=== PATIENT | male | born 1940 | race African-American/Black ===

== ENCOUNTER 2017-01-21 09:06 | Inpatient (IN) ==
[2017-01-21] MEDS ORDERED: ALBUTEROL/IPRATROPIUM 3 ML NEB RESP TX STA (09:51)
[2017-01-21 09:57] LABS: Basophils % 0.3 % (0.0-0.8); Eosinophils # 0.1 10*3/uL (0.0-0.87); Eosinophils % 1.1 % (0.00-10.9); Hematocrit 37.8 VOL% (42.0-52.0); Hemoglobin 11.9 GM/DL (14.0-18.0); Immature Granulocytes % 0.9 %; Immature Granulocytes Absolute 0.09 #; Lymphocytes # 1.2 10*3/uL (1.4-4.0); Lymphocytes % 12.7 % (21.2-54.2); Mean Corpuscular HGB Conc 31.5 GM/DL (32-36); Mean Corpuscular Hemoglobin 29 PG (27-34); Mean Corpuscular Volume 93.1 FL (87-102); Mean Platelet Volume 10.8 FL (9.6-12.0); Monocytes # 1.6 10*3/uL (0.11-0.8); Monocytes % 16.2 % (1.7-12.7); Neutrophils # 6.6 10*3/uL (1.4-7.4); Neutrophils % 68.8 % (38.7-73.9); Platelet Count 295 T/CUMM (130-400); Red Blood Count 4.06 MC/CUMM (3.8-5.5); Red Cell Distribution Width 14.9 % (9.3-17.3); White Blood Count 9.6 T/CUMM (4-12)
--- NOTE | 2017-01-21 10:06 | XRay Report ---
XR chest 1V portable Indication: Shortness of breath Comparison: 02 Apr 2015 Findings: The heart and mediastinum are normal in size and configuration. The pulmonary vascularity is normal in caliber. Lung volumes are increased with prominent bronchial markings. There is increased left lung density when compared previous exam. Lung no other pulmonary infiltrates, effusions, pneumothorax or other abnormality is demonstrated. Impression: Increased left lung density, could indicate pneumonia or mass. PROCEDURE INTERPRETED AT [facility] DEPARTMENT OF RADIOLOGY Final Report Signed by: Dr. Luis Rodríguez
[2017-01-21 10:21] LABS: Hypochromasia 1+; Platelet Estimate Adequate
[2017-01-21 10:22] LABS: Albumin 2.7 G/DL (3.4-5.0); Calcium 8.2 MG/DL (8.5-10.1); Magnesium 1.7 MG/DL (1.8-2.4); Osmolality,Calculated 277.3 MOS/KG (273-304); Potassium 3.1 MMOL/L (3.5-5.1); Total Protein 6.6 G/DL (6.4-8.3)
[2017-01-21] MEDS ORDERED: DOCUSATE SODIUM 100 MG CAPSULE PO PRN (11:21)
[2017-01-21] MEDS ORDERED: LACTULOSE 20 GM/30 ML UDCUP PO PRN (11:21)
[2017-01-21] MEDS ORDERED: ACETAMINOPHEN 325 MG TABLET PO PRN (11:21)
[2017-01-21] MEDS ORDERED: MORPHINE 2 MG/1 ML SYRINGE IV PRN (11:21)
[2017-01-21] MEDS ORDERED: ZALEPLON 5 MG CAPSULE PO PRN (11:21)
--- NOTE | 2017-01-21 11:32 | Emergency Department Note ---
Silas Giordano Meredith, am scribing for, and in the presence of, Mario Higuera MD 09:27. Davida Giordano Phillip K, MD, personally performed the services described in this documentation, ascribed by Carito Rosen in my presence, and it is both accurate and complete . Arrival - Arrival Chief Complaint: Shortness of Breath Stated Complaint: shortness of breath ED Nursing Triage Note: Brought in per EMS from home with c/o shortness of breath onset 4 days ago. +dyspnea on exertion. Denies pain. Denies cough. Reports is on home oxygen 2liters at all times. Mode of Arrival: Stretcher Limitations: No Limitations Source: Patient, Significant other (), Old Records Reviewed, RN Notes Reviewed Time Seen by Provider: 01/21/17 09:22 - History of Present Illness HPI Narrative: Pt is a 76 y/o black male brought to the ED by EMS with c/o shortness of breath which onset 1 week ago. He confirms dyspnea on exertion, sharp chest pain, subjective fever, diarrhea, and decreased appetite but denies any cough, nausea , or vomiting. states pt was diagnosed with lung cancer 3 weeks ago. Pt is on home 2 liters of home O2. He has a history of HTN, HLD, bronchitis, COPD, asbestosis, and GERD. Pt is a former smoker. Onset (ago): week(s) Quality: sharp Allergies/Adverse Reactions: Allergies Allergy/AdvReac Type Severity Reaction Status Date / Time Penicillins Allergy ANAPHYLAXIS Verified 01/21/17 09:17 Home Medications: Home Medications Medication Instructions Recorded Confirmed Type Diltiazem HCl [Cartia XT] 240 mg PO DAILY 03/28/15 12/25/16 History Furosemide 40 mg PO DAILY 03/28/15 12/25/16 History Montelukast Sodium 10 mg PO DAILY 03/28/15 12/25/16 History hydrALAZINE TAB [Apresoline Tab] 10 mg PO BID 03/28/15 12/25/16 History Tiotropium Inhalation [Spiriva] 18 mcg INH DAILY #1 box 04/05/15 12/25/16 Rx Albuterol Sulfate [Ventolin HFA] 2 puff INH Q4H PRN 12/08/16 12/25/16 History Megestrol Acetate [Megace] 400 ml PO DAILY 12/08/16 12/25/16 History Meloxicam [Mobic] 15 mg PO DAILY PRN 12/08/16 12/25/16 History Omeprazole [Prilosec] 20 mg PO BID 12/08/16 12/25/16 History Simvastatin [Zocor] 80 mg PO BEDTIME 12/08/16 12/25/16 History Tamsulosin [Flomax] 0.4 mg PO BID 12/08/16 12/25/16 History Fluticasone 50 Mcg Nasal [place] 1 spray BOTH NARES DAILY PRN 12/19/16 12/25/16 History [Flonase Nasal [place]] HYDROcodone/ACETAMIN 10-325 [[place] 1 tablet PO TID PRN 12/25/16 12/25/16 History 10-325] Review of System - Review of System 12 point system: reviewed and no additional remarkable complaints except as stated - Review of System Constitutional: Present: as per HPI, fever (subjective) Respiratory: Present: as per HPI, other (SOB) Cardiovascular: Present: as per HPI, chest pain, dyspnea on exertion Gastrointestinal: Present: as per HPI, diarrhea, other (decreased appetite). Absent: nausea, vomiting Medical,Surgical,& Family Hx - Medical History Cardio: History of: Hypertension HEENT: History of: HEENT Problems (chronic sinusitis) Endocrine: History of: Dyslipidemia Respiratory: History of: Bronchitis, COPD (emphysema), Lung Cancer, Respiratory Problems (Asbestosis Hx) Gastrointestinal: History of: GERD - Surgical History Cardiac Surgeries: Sugical HX of: Carotid Endarterectomy (left side) HEENT Surgeries: Surgical HX of: Carotid Endarterectomy (left side) Abdominal Surgeries: Patient denies: Abdominal Surgery - Family History Family History: Reports;: Family Diabetes (brother) Denies;: Family Anesthesia Reaction, Family Cancer, Family Heart Disease, Family Hypertension, Family Stroke - Social History Smoking Status: Former smoker Exam Vital Signs: Vital Signs Temperature 97.7 F 01/21/17 09:17 Pulse Rate 68 01/21/17 10:15 Respiratory Rate 23 01/21/17 10:50 Blood Pressure 146/78 01/21/17 10:15 O2 Sat by Pulse Oximetry 100 01/21/17 10:15 - General General appearance: alert, in no apparent distress - Head Head exam: Present: atraumatic, normocephalic - Eye Eye exam: Present: normal appearance, PERRL, EOMI - ENT ENT exam: Present: mucous membranes moist, normal external ear exam - Neck Neck exam: Present: full ROM, trachea midline. Absent: tenderness, meningismus , lymphadenopathy, thyromegaly - Chest Chest inspection: Present: symmetric chest wall rise. Absent: tenderness, rash - Respiratory Respiratory exam: Present: rales (left base), other (decreased breath sounds in the right posterior lung) - Cardiovascular Cardiovascular exam: Present: regular rate, normal rhythm, normal heart sounds. Absent: murmur, rubs, gallop - Abdominal Exam Abdominal exam: Present: soft, normal bowel sounds. Absent: distention, tenderness - Extremities Exam Extremities exam: Present: full ROM, normal capillary refill. Absent: tenderness, pedal edema, calf tenderness - Back Exam Back exam: Present: full ROM. Absent: tenderness - Neurological Exam Neurological exam: Present: alert, oriented X3, CN II-XII intact. Absent: motor sensory deficit - Psychiatric Psychiatric exam: Present: normal affect, normal mood - Skin Skin exam: Present: warm, dry, intact, normal color Results - Labs CBC & BMP: 01/21/17 09:28 01/21/17 09:28 Lab Results: I have reviewed the patients labs Labs: Laboratory Tests 01/21/17 09:28 D-Dimer, Quantitative 2.6 Laboratory Tests 01/21/17 01/21/17 01/21/17 09:28 09:28 09:28 WBC 9.6 RBC 4.06 Hgb 11.9 L Hct 37.8 L MCHC 31.5 L Plt Count 295 Lymph % (Auto) 12.7 L Door % (Auto) 16.2 H Lymph # (Auto) 1.2 L Door # (Auto) 1.6 H Sodium 141 Potassium 3.1 L Chloride 100 Carbon Dioxide 27 Anion Gap 17.1 H BUN 8 Creatinine 1.10 Calcium 8.2 L Magnesium 1.7 L Total Bilirubin 2.00 H AST 235 H ALT 285 H Alkaline Phosphatase 370 H B-Natriuretic Peptide 39 Albumin 2.7 L Globulin 3.9 H Albumin/Globulin Ratio 0.6 L - Diagnostic Findings Procedure: Chest x-ray: report reviewed by me (Increased left lung denisty could indicate pneumonia or mass. ) Disposition Clinical Impression: Lung cancer metastatic to bone, Dyspnea, Acute exacerbation of chronic obstructive airways disease Clinical Impression: (Ruled Out): Metastatic carcinoma involving left lung with unknown primary site Case discussed with: patient, patient's family Disposition: Still a Patient Condition: Guarded Additional Instructions: Admit to the hospitalist and oncology consult.
[2017-01-21] MEDS ORDERED: ONDANSETRON 4 MG/2 ML VIAL ONE (11:51)
[2017-01-21] MEDS: ONDANSETRON 4 MG/2 ML VIAL IV PRN (11:57)
--- NOTE | 2017-01-21 12:27 | Hospitalist History & Physical ---
Assessment and Plan - Time spent with patient Time spent with patient: Greater than 30 minutes (due to assessment, plan and doc) (1) Lung cancer metastatic to bone Status: Acute Assessment and plan: increased SOB Oncology Consultation: Dr. White Recent L/S spine bx on 12/25 pathology c/w mets Current Visit: Yes (2) HTN (hypertension) Status: Acute Assessment and plan: continue home medications Current Visit: Yes (3) Hyperlipidemia Status: Acute Assessment and plan: continue home meds Current Visit: Yes (4) COPD (chronic obstructive pulmonary disease) Status: Acute Assessment and plan: continue home meds Current Visit: Yes (5) Diarrhea Status: Acute Assessment and plan: will cx stools to ensure no infectious cause Current Visit: Yes History of Present Illness Chief complaint: increased sob History of present illness: Mr. Soria is a 76 year old male who presented to the ED today after having a one long week history of increased shortness of breath. He does have a recent diagnosis of lung cancer and from our records, appears that he had a lumbar/sacral lesion that was biopsied by Dr. Chavarria on 12/25/16 with pathology returning "metastatic poorly differentiated carcinoma". CXR today shows left lung mass that appears to have increased in size from previous studies. He has been to [facility] for a second opinion and has recently gone to [facility] for another opinion. Family at bedside states that [facility] told them there "was nothing to do". He is short of breath at baseline, but with severe dyspnea on exertion according to Mr. Soria and family. Family reports fever at home, but none has been documented here. WBC is normal. He is on home o2 around the clock consistent with chronic respiratory failure. He does not have an oncologist here, but states that he 'wants to get one here'. I have consulted Dr. White who is title one reading teacher for oncology today to see Mr. Soria. He does complain of some midsternal chest pain, no radiation. Does not sound cardiac in nature, but will obtain a troponin to ensure no elevation. He has a hx of gout and is complaining of severe left heel pain, so I will get a uric acid level as well. He is on colchicine 0.6 mg PO BID. He has a PMH significant for COPD/emphysema, HTN, hyperlipidemia, gout, and GERD and likely BPH as he is on Flomax. He is a former smoker, does not drink or use illicits. He mentions that he has no appetite whatsoever and is beginning to have significant nausea. PRN medications have been ordered for pain, nausea. No melena, or hematuria. Is having some diarrhea at this time. Will culture stools. Mr. Soria will be admitted for further work up and Oncology evaluation. He lives at home with his and she helps with his needs along with his daughters. Further plan and addendum to follow by Dr. Olga Olivia. Home Medications Medication Instructions Recorded Confirmed Type Diltiazem HCl [Cartia XT] 240 mg PO QAM 03/28/15 01/21/17 History Furosemide 40 mg PO DAILY 03/28/15 01/21/17 History Montelukast Sodium 10 mg PO DAILY 03/28/15 01/21/17 History Tiotropium Inhalation [Spiriva] 18 mcg INH DAILY #1 box 04/05/15 01/21/17 Rx Albuterol Sulfate [Ventolin HFA] 2 puff INH Q4H PRN 12/08/16 01/21/17 History Megestrol Acetate [Megace] 10 ml PO DAILY 12/08/16 01/21/17 History Omeprazole [Prilosec] 20 mg PO BID 12/08/16 01/21/17 History Simvastatin [Zocor] 80 mg PO BEDTIME 12/08/16 01/21/17 History Tamsulosin [Flomax] 0.4 mg PO BID 12/08/16 01/21/17 History Aspirin EC Tab 81 mg PO DAILY 01/21/17 01/21/17 History Colchicine 0.6 mg PO BID 01/21/17 01/21/17 History Ondansetron HCl 4 mg PO Q6H PRN 01/21/17 01/21/17 History Oxycodone HCl/Acetaminophen 1 each PO Q4H PRN 01/21/17 01/21/17 History [Percocet 10-325 mg Tablet] fentaNYL [Fentanyl 25 mcg/hr Patch] 1 patch TRANSDERM Q3DAY 01/21/17 01/21/17 History Allergies Allergy/AdvReac Type Severity Reaction Status Date / Time Penicillins Allergy ANAPHYLAXIS Verified 01/21/17 09:17 Medical,Surgical,& Family Hx - Medical History Cardio: History of: Hypertension HEENT: History of: HEENT Problems (chronic sinusitis) Endocrine: History of: Dyslipidemia Rheumatology: History of;: Gout Respiratory: History of: Bronchitis, COPD (emphysema), Lung Cancer, Respiratory Problems (Asbestosis Hx) Gastrointestinal: History of: GERD - Surgical History Cardiac Surgeries: Sugical HX of: Carotid Endarterectomy (left side) HEENT Surgeries: Surgical HX of: Carotid Endarterectomy (left side) Abdominal Surgeries: Patient denies: Abdominal Surgery - Family History Family History: Reports;: Family Diabetes (brother) Denies;: Family Anesthesia Reaction, Family Cancer, Family Heart Disease, Family Hypertension, Family Stroke - Social History Smoking Status: Former smoker Frequency of Alcohol Use: None Type of Drug Use: None Marital Status: Lives With:: Spouse Functional capacity: independent ambulation - Constitutional Constitutional: Present: fever(s) (none here.). Absent: chills, fatigue, weakness - EENT Eyes: Absent: blurry vision, diplopia Ears: Absent: decreased hearing, tinnitus Nose, mouth and throat: Absent: dysphagia, headache(s) - Cardiovascular Cardiovascular: Present: chest pain at rest (nonradiating. ), dyspnea, dyspnea on exertion. Absent: orthopnea, palpitations - Respiratory Respiratory: Present: cough, dyspnea, dyspnea on exertion. Absent: hemoptysis - Gastrointestinal Gastrointestinal: Present: diarrhea, nausea. Absent: abdominal pain, melena, vomiting - Genitourinary Genitourinary: Absent: difficulty urinating, hematuria - Musculoskeletal Musculoskeletal: Absent: arthralgias, joint swelling - Neurological Neurological: Absent: confusion, dizziness - Psychiatric Psychiatric: Absent: anxiety, confusion, depression - Endocrine Endocrine: Absent: cold intolerance, heat intolerance - Hematologic/Lymphatic Hematologic/Lymphatic: Absent: easy bleeding, easy bruising Exam - Constitutional Vitals: Period Temp Pulse Resp BP Sys/Solis Pulse Ox Last 24 Hr 97.7 F-97.7 F 68-99 17-23 108-146/75-78 96-100 General appearance: normal weight, no acute distress - Head Head exam: Present: normal inspection, normocephalic - Eye Eye exam: Present: EOMI. Absent: scleral icterus Pupils: Present: RAOUL, normal accommodation - ENT ENT exam: Present: normal exam, normal oropharynx - Neck Neck exam: Present: normal inspection. Absent: lymphadenopathy - Respiratory Respiratory exam: Present: clear to auscultation bilaterally. Absent: accessory muscle use - Cardiovascular Cardiovascular exam: Present: regular rate and rhythm. Absent: carotid bruit - GI/Abdominal GI/Abdominal exam: Present: normal bowel sounds, soft. Absent: tenderness - Extremities Exam Extremities exam: Present: normal inspection. Absent: edema - Back Exam Back exam: Present: normal inspection. Absent: muscle spasm - Neurological Exam Neurological exam: Present: alert, oriented X3 - Psychiatric Psychiatric exam: Present: normal affect, normal mood - Skin Skin exam: Present: normal color, warm, dry, intact Results - Labs CBC & BMP: 01/21/17 09:28 01/21/17 09:28 Lab Results: I have reviewed the past 24 hour labs - Diagnostic Findings Procedure: Chest x-ray: report reviewed by me (infiltrate vs mass. )
[2017-01-21] MEDS ORDERED: ONDANSETRON 4 MG TABLET PO PRN (13:16)
[2017-01-21] MEDS ORDERED: ALBUTEROL 2.5 MG/3 ML NEB RESP TX PRN (13:30)
[2017-01-21] MEDS: IPRATROPIUM 500 MCG/2.5 ML NEB RESP TX SCH ×2 (14:45→19:48)
--- NOTE | 2017-01-21 15:29 | EKG Report ---
Stationary ECG Study [facility] ER Test Date: 01/21/2017 9:13:59 AM Pat Name: Abbey CARY Department: Room: 241 Gender: M Showcase Trimmer: FABIOLA : 1940 Requested by: Mario Barker Order Number: [id number] Reading MD: ANNETTE DUCKWORTH Intervals [place] Rate: 89 P: 69 MN: 166 QRS: -73 QRSD: 74 T: 79 QT: 363 QTc: 410 Interpretive Statements SINUS RHYTHM POSSIBLE LEFT ATRIAL ENLARGEMENT MARKED LEFT AXIS DEVIATION NONSPECIFIC T-WAVE ABNORMALITY Electronically Signed On 01-22-17 22:45:18 SUPERVISOR PROCESS TESTING by ANNETTE DUCKWORTH [email or web address]
[2017-01-21] MEDS ORDERED: OMEPRAZOLE 20 MG CAPSULE PO SCH (21:00)
[2017-01-21] MEDS: COLCHICINE 0.6 MG TABLET PO SCH (21:17)
[2017-01-21] MEDS: TAMSULOSIN 0.4 MG CAPSULE PO SCH (21:18)
[2017-01-21] MEDS: SIMVASTATIN 80 MG TABLET PO SCH (21:18)
[2017-01-21] MEDS: ENOXAPARIN 40 MG/0.4 ML SYRINGE SUBCUT SCH (21:18)
[2017-01-22 04:36] LABS: Basophils % 0.3 % (0.0-0.8); Eosinophils # 0.1 10*3/uL (0.0-0.87); Eosinophils % 1.4 % (0.00-10.9); Hematocrit 35.9 VOL% (42.0-52.0); Hemoglobin 11.3 GM/DL (14.0-18.0); Immature Granulocytes % 0.9 %; Immature Granulocytes Absolute 0.07 #; Lymphocytes # 1.2 10*3/uL (1.4-4.0); Lymphocytes % 15.1 % (21.2-54.2); Mean Corpuscular HGB Conc 31.5 GM/DL (32-36); Mean Corpuscular Hemoglobin 30 PG (27-34); Mean Platelet Volume 11.2 FL (9.6-12.0); Monocytes # 1.6 10*3/uL (0.11-0.8); Monocytes % 20.2 % (1.7-12.7); Neutrophils # 4.8 10*3/uL (1.4-7.4); Neutrophils % 62.1 % (38.7-73.9); Platelet Count 257 T/CUMM (130-400); Red Blood Count 3.82 MC/CUMM (3.8-5.5); White Blood Count 7.8 T/CUMM (4-12)
[2017-01-22 04:56] LABS: Albumin 2.5 G/DL (3.4-5.0); Bilirubin,Total 2.2 MG/DL (0.2-1.0); Calcium 8.2 MG/DL (8.5-10.1); Osmolality,Calculated 277.3 MOS/KG (273-304); Total Protein 6.1 G/DL (6.4-8.3)
[2017-01-22 05:00] LABS: Lymphocytes 16 % (20-55); Metamyelocytes 1 %; Segmented Neutrophils 69 % (50-85); Total Cells Counted 100
[2017-01-22 05:01] LABS: Hypochromasia Slight; Platelet Estimate Normal
[2017-01-22] MEDS: IPRATROPIUM 500 MCG/2.5 ML NEB RESP TX SCH ×4 (07:39→19:56)
[2017-01-22] MEDS: COLCHICINE 0.6 MG TABLET PO SCH ×2 (09:07→21:22)
[2017-01-22] MEDS: MEGESTROL 400 MG/10 ML UDCUP PO SCH (09:07)
[2017-01-22] MEDS: MONTELUKAST 10 MG TABLET PO SCH (09:07)
[2017-01-22] MEDS: ASPIRIN EC 81 MG TABLET PO SCH (09:07)
[2017-01-22] MEDS: FUROSEMIDE 40 MG TABLET PO SCH (09:07)
[2017-01-22] MEDS: PANTOPRAZOLE 40 MG TABLET PO SCH (09:08)
[2017-01-22] MEDS: DILTIAZEM CD 240 MG CAPSULE PO SCH (09:08)
[2017-01-22] MEDS: TAMSULOSIN 0.4 MG CAPSULE PO SCH ×2 (09:09→21:22)
--- NOTE | 2017-01-22 09:29 | Oncology Consult Note ---
History of Present Illness Chief complaint: Metastatic cancer of unknown primary History of present illness: Mr. Soria is a 76 year old male who had a biopsy of his spine performed here on December 25, 2016 and the diagnosis was metastatic poorly differentiated carcinoma. He never saw a medical oncologist here. He has been to the [facility] and also to the [facility]. He is extremely frail and his family reports that the [facility] physicians did not recommend any treatment other than best supportive care. The biopsy done here was not diagnostic of a specific site and breast cancer was mentioned, which can occur in males. Bladder cancer was also mentioned as another possibility. The patient does complain of low back pain. In addition to being frail and debilitated, the patient has a history of COPD and is dependent on supplemental oxygen. The patient does not have history of cigarette smoking. He does not use alcohol. On December 15 he had a PSA of 3.6, which is normal. I cannot locate any additional tumor markers. I am ordering a breast cancer antigen as well as a CEA and an alpha-fetoprotein level. I am also ordering protein electrophoretic studies which will probably be scattered throughout the patient's chart and take quite a while to locate as well as quite a while to run. I will be following him with you. Clearly he is emaciated and cachectic and not a good candidate for any aggressive treatment but if this turned out to be an unusual case of metastatic breast cancer he might be responsive to hormone therapy. He also might benefit from bisphosphonate therapy to his bones. Physical examination: General: The patient is emaciated, cachectic and malnourished. Eyes: Normal lids and conjunctivae. ENT: Poor dentition. His trachea is midline and he has no neck masses. His hearing appears normal. Lungs: Breath sounds are slightly coarse throughout without rubs, rales or rhonchi in his chest moves symmetrically with respiration. Cardiovascular: His heart rhythm is regular without murmur, gallop or rub. There is no jugular venous distention, clubbing or cyanosis. Abdomen: I palpate no abdominal masses, organomegaly, distention, tenderness or ascites. Musculoskeletal: He has generalized muscle wasting and weakness without focal muscle atrophy or bone or joint deformity. Neurologic: I detect no focal neurologic deficit. Cranial nerves II through XII are intact. Nodes: I find no submandibular, cervical, supraclavicular or axillary adenopathy. This is a very debilitated, elderly and emaciated patient with adenocarcinoma that is evidently not prostate cancer. This means that aggressive chemotherapy would be difficult for him to tolerate if he can tolerate it at all. He has evidently already been told by experts at the [facility] and [facility] that chemotherapy would be palliative and that they do not recommend it. I certainly cannot disagree with this. I would consider hospice. Thank you for consulting me. Case discussed with Dr. Olivia Home Medications Medication Instructions Recorded Confirmed Type Diltiazem HCl [Cartia XT] 240 mg PO QAM 03/28/15 01/21/17 History Furosemide 40 mg PO DAILY 03/28/15 01/21/17 History Montelukast Sodium 10 mg PO DAILY 03/28/15 01/21/17 History Tiotropium Inhalation [Spiriva] 18 mcg INH DAILY #1 box 04/05/15 01/21/17 Rx Albuterol Sulfate [Ventolin HFA] 2 puff INH Q4H PRN 12/08/16 01/21/17 History Megestrol Acetate [Megace] 10 ml PO DAILY 12/08/16 01/21/17 History Omeprazole [Prilosec] 20 mg PO BID 12/08/16 01/21/17 History Simvastatin [Zocor] 80 mg PO BEDTIME 12/08/16 01/21/17 History Tamsulosin [Flomax] 0.4 mg PO BID 12/08/16 01/21/17 History Aspirin EC Tab 81 mg PO DAILY 01/21/17 01/21/17 History Colchicine 0.6 mg PO BID 01/21/17 01/21/17 History Ondansetron HCl 4 mg PO Q6H PRN 01/21/17 01/21/17 History Oxycodone HCl/Acetaminophen 1 each PO Q4H PRN 01/21/17 01/21/17 History [Percocet 10-325 mg Tablet] fentaNYL [Fentanyl 25 mcg/hr Patch] 1 patch TRANSDERM Q3DAY 01/21/17 01/21/17 History Allergies Allergy/AdvReac Type Severity Reaction Status Date / Time Penicillins Allergy ANAPHYLAXIS Verified 01/21/17 09:17 Medical,Surgical,& Family Hx - Medical History Cardio: History of: Hypertension HEENT: History of: HEENT Problems (chronic sinusitis) Endocrine: History of: Dyslipidemia Rheumatology: History of;: Gout Respiratory: History of: Bronchitis, COPD (emphysema), Lung Cancer, Respiratory Problems (Asbestosis Hx) Gastrointestinal: History of: GERD Other: History of: Cancer (lung ca with bone mets) - Surgical History Cardiac Surgeries: Sugical HX of: Carotid Endarterectomy (left side) HEENT Surgeries: Surgical HX of: Carotid Endarterectomy (left side) Abdominal Surgeries: Patient denies: Abdominal Surgery - Family History Family History: Reports;: Family Diabetes (brother) Denies;: Family Anesthesia Reaction, Family Cancer, Family Heart Disease, Family Hypertension, Family Stroke - Social History Smoking Status: Former smoker Frequency of Alcohol Use: None Type of Drug Use: None Exam - Constitutional Vitals: Period Temp Pulse Resp BP Sys/Solis Pulse Ox Last 24 Hr 96.9 F-98.4 F 82-91 15-27 105-129/57-79 94-99 Results - Labs CBC & BMP: 01/22/17 03:17 01/22/17 03:17
--- NOTE | 2017-01-22 10:31 | Hospitalist Progress Note ---
Assessment and Plan (1) COPD (chronic obstructive pulmonary disease) Status: Chronic Current Visit: No (2) History of asbestos exposure Status: Acute Current Visit: No (3) Malignant neoplasm metastatic to lumbar spine with unknown primary site Problem details: Unknown primary Status: Acute Assessment and plan: oncology seeing and will order additional test as we don't know exact type of cancer Current Visit: No Hospitalist: Subjective Interval history: Mr. Soria was admitted on yesterday for failure to thrive receiving was diagnosed with cancer here in November of this year when it was undifferentiated. The family wanted another opinion is that he was seen at [facility] & [facility]. A [facility] assessment consult is asked that we obtain medical history [facility] and has ordered some other tumor markers. This morning patient has no new complaints. Exam - Constitutional Vitals: Period Temp Pulse Resp BP Sys/Solis Pulse Ox Last 24 Hr 96.9 F-98.4 F 82-91 15-27 105-129/57-79 94-99 Exam: emaicated and cachectic - Head Head exam: Present: normocephalic, atraumatic - Eye Eye exam: Present: EOMI Pupils: Present: RAOUL - Respiratory Respiratory exam: Present: clear to auscultation bilaterally - Cardiovascular Cardiovascular exam: Present: regular rate and rhythm - GI/Abdominal GI/Abdominal exam: Present: normal bowel sounds, soft - Neurological Exam Neurological exam: Present: alert, oriented X3, CN II-XII intact - Psychiatric Psychiatric exam: Present: normal affect, normal mood - Skin Skin exam: Present: warm, intact Results - Labs CBC & BMP: 01/22/17 03:17 01/22/17 03:17
[2017-01-22 11:06] LABS: Carcinoembryonic Antigen 3.4 NG/ML (0.0-5.0); Prostate Specific Antigen Diag 1.5 NG/ML (0-4)
[2017-01-22 11:55] LABS: Immunoglobulin A (Chem) 344 MG/DL (70-400); Immunoglobulin G (Chem) 1210 MG/DL (700-1600); Immunoglobulin M (Chem) 83 MG/DL (40-230)
[2017-01-22] MEDS: ONDANSETRON 4 MG/2 ML VIAL IV PRN (12:29)
[2017-01-22] MEDS: oxyCODONE/ACETAMINOPHEN 5-325 MG TABLET PO PRN (14:03)
[2017-01-22] MEDS: ENOXAPARIN 40 MG/0.4 ML SYRINGE SUBCUT SCH (21:22)
[2017-01-22] MEDS: SIMVASTATIN 80 MG TABLET PO SCH (21:22)
[2017-01-23] MEDS: oxyCODONE/ACETAMINOPHEN 5-325 MG TABLET PO PRN (03:21)
[2017-01-23] MEDS: IPRATROPIUM 500 MCG/2.5 ML NEB RESP TX SCH ×4 (07:26→19:05)
[2017-01-23 08:50] LABS: Immuno Free Light Chain Kappa 5.83 MG/DL (0.33-1.94); Immuno Free Light Chain Lambda 3.31 MG/DL (0.57-2.63); Immuno Free Light Chain Ratio 1.76 MG/DL (0.26-1.65)
[2017-01-23 08:53] LABS: Albumin (SPE) 2.9 G/DL (3.2-5.3); Albumin (SPE) Rel % 48.7 %; Alpha 1 (SPE) 0.3 G/DL (0.1-0.4); Alpha 1 (SPE) Rel % 5.6 %; Alpha 2 (SPE) 0.7 G/DL (0.4-1.0); Alpha 2 (SPE) Rel % 11.4 %; Beta (SPE) 0.8 G/DL (0.5-1.1); Beta (SPE) Rel % 13.2 %; Gamma (SPE) 1.3 G/DL (0.7-1.7); Gamma (SPE) Rel % 21.1 %
[2017-01-23] MEDS: COLCHICINE 0.6 MG TABLET PO SCH ×2 (09:28→20:39)
[2017-01-23] MEDS: MONTELUKAST 10 MG TABLET PO SCH (09:28)
[2017-01-23] MEDS: FUROSEMIDE 40 MG TABLET PO SCH (09:28)
[2017-01-23] MEDS: PANTOPRAZOLE 40 MG TABLET PO SCH (09:28)
[2017-01-23] MEDS: ASPIRIN EC 81 MG TABLET PO SCH (09:28)
[2017-01-23] MEDS: MEGESTROL 400 MG/10 ML UDCUP PO SCH (09:28)
[2017-01-23] MEDS: TAMSULOSIN 0.4 MG CAPSULE PO SCH ×2 (09:29→20:38)
[2017-01-23] MEDS: DILTIAZEM CD 240 MG CAPSULE PO SCH (09:29)
--- NOTE | 2017-01-23 11:35 | Oncology Progress Note ---
Oncology Subjective PN Interval history: I met with the patient today and with his family. I explained to them that I am in agreement with the previous advice of the oncologist at [facility] in [place] and at the [facility]. I think that hospice is the best choice in this patient's case. I do not think there is much to be gained by treatment with aggressive chemotherapy that is not likely to improve the quality of his life. Thank you for consulting me. Exam - Constitutional Vitals: Period Temp Pulse Resp BP Sys/Solis Pulse Ox Last 24 Hr 96.9 F-99.0 F 71-90 - 102-107/60-69 94-99 Results - Labs CBC & BMP: 01/22/17 03:17 01/22/17 03:17
--- NOTE | 2017-01-23 11:40 | Hospitalist Progress Note ---
Assessment and Plan (1) COPD (chronic obstructive pulmonary disease) Status: Chronic Current Visit: No (2) History of asbestos exposure Status: Acute Current Visit: No (3) Malignant neoplasm metastatic to lumbar spine with unknown primary site Problem details: Unknown primary Status: Acute Assessment and plan: oncology seeing and will order additional test as we don't know exact type of cancer 01/23/17: discussed with oncology and little to over that will improve quality of life and it appears they have been told by doctors at [facility] and [facility]. I am going to discuss going home with hospice. Current Visit: No Hospitalist: Subjective Interval history: patient is seen and has no complaints today. He says he feels as if his appetite is a little better today. I discussed case with Dr. White & he states he has little to offer patient as cancer is advance and still unsure of primary site and that chemotherapy will not improve quality of life. Exam - Constitutional Vitals: Period Temp Pulse Resp BP Sys/Solis Pulse Ox Last 24 Hr 96.9 F-99.0 F 71-90 17-22 102-107/60-69 94-99 Exam: emaicated and cachectic - Head Head exam: Present: normocephalic, atraumatic - Eye Eye exam: Present: EOMI Pupils: Present: RAOUL - Respiratory Respiratory exam: Present: clear to auscultation bilaterally - Cardiovascular Cardiovascular exam: Present: regular rate and rhythm - GI/Abdominal GI/Abdominal exam: Present: normal bowel sounds, soft - Neurological Exam Neurological exam: Present: alert, oriented X3, CN II-XII intact - Psychiatric Psychiatric exam: Present: normal affect, normal mood - Skin Skin exam: Present: warm, intact Results - Labs CBC & BMP: 01/22/17 03:17 01/22/17 03:17
[2017-01-23] MEDS ORDERED: POTASSIUM CHLORIDE 20 MEQ TABLET PO ONE (11:43)
[2017-01-23] MEDS: fentaNYL 25 MCG/HR PATCH TRANSDERM SCH (13:32)
[2017-01-23] MEDS: SIMVASTATIN 80 MG TABLET PO SCH (20:38)
[2017-01-23] MEDS: ENOXAPARIN 40 MG/0.4 ML SYRINGE SUBCUT SCH (20:38)
[2017-01-24] MEDS: IPRATROPIUM 500 MCG/2.5 ML NEB RESP TX SCH ×4 (07:23→19:13)
[2017-01-24] MEDS: ONDANSETRON 4 MG/2 ML VIAL IV PRN (08:03)
[2017-01-24] MEDS: ASPIRIN EC 81 MG TABLET PO SCH (08:05)
[2017-01-24] MEDS: MONTELUKAST 10 MG TABLET PO SCH (08:05)
[2017-01-24] MEDS: TAMSULOSIN 0.4 MG CAPSULE PO SCH ×2 (08:05→20:59)
[2017-01-24] MEDS: COLCHICINE 0.6 MG TABLET PO SCH ×2 (08:05→20:59)
[2017-01-24] MEDS: MEGESTROL 400 MG/10 ML UDCUP PO SCH (08:05)
[2017-01-24] MEDS: PANTOPRAZOLE 40 MG TABLET PO SCH (08:06)
[2017-01-24] MEDS: DILTIAZEM CD 240 MG CAPSULE PO SCH (08:14)
[2017-01-24] MEDS ORDERED: fentaNYL 25 MCG/HR PATCH TRANSDERM SCH (09:00)
--- NOTE | 2017-01-24 10:24 | Hospitalist Progress Note ---
Assessment and Plan (1) COPD (chronic obstructive pulmonary disease) Status: Chronic Current Visit: No (2) History of asbestos exposure Status: Acute Current Visit: No (3) Malignant neoplasm metastatic to lumbar spine with unknown primary site Problem details: Unknown primary Status: Acute Assessment and plan: oncology seeing and will order additional test as we don't know exact type of cancer 01/23/17: discussed with oncology and little to over that will improve quality of life and it appears they have been told by doctors at [facility] and [facility]. I am going to discuss going home with hospice. 01/24/17: referral sent for hospice Current Visit: No Hospitalist: Subjective Interval history: 76 yo male with metastatic cancer of unknown primary site admitted as he and his family was wishing to possible start chemotherapy. He was seen here at [facility] but they wanted second opinions and went to [facility] and [facility] and per report told the same thing and told that because of the advancement chemotherapy wouldn't improve his quality of life. He as been referred to hospice. Exam - Constitutional Vitals: Period Temp Pulse Resp BP Sys/Solis Pulse Ox Last 24 Hr 97.6 F-98.5 F 78-90 16-22 106-120/63-76 93-99 Exam: emaicated and cachectic - Head Head exam: Present: normocephalic, atraumatic - Eye Eye exam: Present: EOMI Pupils: Present: RAOUL - Respiratory Respiratory exam: Present: clear to auscultation bilaterally - Cardiovascular Cardiovascular exam: Present: regular rate and rhythm - GI/Abdominal GI/Abdominal exam: Present: normal bowel sounds, soft - Neurological Exam Neurological exam: Present: alert, oriented X3, CN II-XII intact - Psychiatric Psychiatric exam: Present: normal affect, normal mood - Skin Skin exam: Present: warm, intact Results - Labs CBC & BMP: 01/22/17 03:17 01/22/17 03:17
[2017-01-24] MEDS: oxyCODONE/ACETAMINOPHEN 5-325 MG TABLET PO PRN ×2 (13:54→23:57)
[2017-01-24] MEDS: SIMVASTATIN 80 MG TABLET PO SCH (20:59)
[2017-01-24] MEDS: ENOXAPARIN 40 MG/0.4 ML SYRINGE SUBCUT SCH (20:59)
[2017-01-25] MEDS: IPRATROPIUM 500 MCG/2.5 ML NEB RESP TX SCH ×4 (10:19→19:10)
--- NOTE | 2017-01-25 10:52 | Hospitalist Progress Note ---
Assessment and Plan (1) COPD (chronic obstructive pulmonary disease) Status: Chronic Current Visit: No (2) History of asbestos exposure Status: Acute Current Visit: No (3) Malignant neoplasm metastatic to lumbar spine with unknown primary site Problem details: Unknown primary Status: Acute Assessment and plan: oncology seeing and will order additional test as we don't know exact type of cancer 01/23/17: discussed with oncology and little to over that will improve quality of life and it appears they have been told by doctors at [facility] and [facility]. I am going to discuss going home with hospice. 01/24/17: referral sent for hospice 01/25/17: pending hospice likely home in the am Current Visit: No Hospitalist: Subjective Interval history: 76 yo male with metastatic cancer unknown primary site who returned for options about treatment. Oncology has recommended hospice and pending referral. Exam - Constitutional Vitals: Period Temp Pulse Resp BP Sys/Solis Pulse Ox Last 24 Hr 97.6 F-98.6 F 76-90 16-20 107-126/63-76 93-99 General appearance: cachectic - Head Head exam: Present: normocephalic, atraumatic - Eye Eye exam: Present: EOMI Pupils: Present: RAOUL - ENT ENT exam: Present: normal exam - Respiratory Respiratory exam: Present: clear to auscultation bilaterally - Cardiovascular Cardiovascular exam: Present: regular rate and rhythm - GI/Abdominal GI/Abdominal exam: Present: normal bowel sounds, soft - Extremities Exam Extremities exam: Present: full ROM - Neurological Exam Neurological exam: Present: alert, oriented X3, CN II-XII intact - Skin Skin exam: Present: warm, intact Results - Labs CBC & BMP: 01/22/17 03:17 01/22/17 03:17
[2017-01-25] MEDS: ASPIRIN EC 81 MG TABLET PO SCH (11:23)
[2017-01-25] MEDS: MEGESTROL 400 MG/10 ML UDCUP PO SCH (11:23)
[2017-01-25] MEDS: TAMSULOSIN 0.4 MG CAPSULE PO SCH ×2 (11:23→21:18)
[2017-01-25] MEDS: DILTIAZEM CD 240 MG CAPSULE PO SCH (11:23)
[2017-01-25] MEDS: COLCHICINE 0.6 MG TABLET PO SCH ×2 (11:23→21:18)
[2017-01-25] MEDS: PANTOPRAZOLE 40 MG TABLET PO SCH (11:24)
[2017-01-25] MEDS: MONTELUKAST 10 MG TABLET PO SCH (11:24)
[2017-01-25] MEDS: ENOXAPARIN 40 MG/0.4 ML SYRINGE SUBCUT SCH (21:18)
[2017-01-25] MEDS: SIMVASTATIN 80 MG TABLET PO SCH (21:18)
[2017-01-25] MEDS: ONDANSETRON 4 MG/2 ML VIAL IV PRN (23:30)
[2017-01-26] MEDS ORDERED: PROMETHAZINE 25 MG/1 ML VIAL IM PRN (01:58)
[2017-01-26] MEDS: oxyCODONE/ACETAMINOPHEN 5-325 MG TABLET PO PRN (04:52)
[2017-01-26] MEDS: IPRATROPIUM 500 MCG/2.5 ML NEB RESP TX SCH ×3 (07:35→14:05)
[2017-01-26] MEDS: fentaNYL 25 MCG/HR PATCH TRANSDERM SCH (09:27)
[2017-01-26] MEDS: MEGESTROL 400 MG/10 ML UDCUP PO SCH (09:28)
[2017-01-26] MEDS: MONTELUKAST 10 MG TABLET PO SCH (09:28)
[2017-01-26] MEDS: PANTOPRAZOLE 40 MG TABLET PO SCH (09:28)
[2017-01-26] MEDS: DILTIAZEM CD 240 MG CAPSULE PO SCH (09:28)
[2017-01-26] MEDS: COLCHICINE 0.6 MG TABLET PO SCH (09:28)
[2017-01-26] MEDS: ASPIRIN EC 81 MG TABLET PO SCH (09:29)
[2017-01-26] MEDS: TAMSULOSIN 0.4 MG CAPSULE PO SCH (09:29)
--- NOTE | 2017-01-26 09:29 | Oncology Progress Note ---
Oncology Subjective PN Interval history: I am available to come back to see Mr. Soria as needed. Please contact me if you need me to do this. Thank you. Exam - Constitutional Vitals: Period Temp Pulse Resp BP Sys/Solis Pulse Ox Last 24 Hr 97.9 F-98.6 F 71-97 16-20 108-155/60-79 93-100 Results - Labs CBC & BMP: 01/22/17 03:17 01/22/17 03:17
[2017-01-26] MEDS: ONDANSETRON 4 MG/2 ML VIAL IV PRN (12:09)
[2017-01-26 14:16] VITALS: BP 118/72
--- NOTE | 2017-01-26 15:08 | Discharge Summary ---
Hospital Course - Hospital Course Hospital Course: 76-year-old black male with metastatic cancer with an unknown primary site. Patient has been recommended for hospice care. Consultation placed with [facility] hospice. Patient being discharged home today with hospice set up. Please see consultations from heme/onc in the chart - Time spent with patient Time with patient DS: Less than 30 minutes Diagnosis - Discharge Diagnosis (1) History of asbestos exposure Status: Chronic (2) Malignant neoplasm metastatic to lumbar spine with unknown primary site Status: Chronic (3) HTN (hypertension) Status: Chronic (4) COPD (chronic obstructive pulmonary disease) Status: Chronic Discharge Plan - Discharge Data Disposition: Hospice - Home Condition at Discharge: Stable Discharge Diet: advance to your usual diet - Discharge Medications New Docusate Sodium Cap [Colace Cap] 100 mg PO BID PRN #0 capsule PRN Reason: Constipation Lactulose Liquid [Chronulac] 20 gm PO Q6HR PRN #120 PRN Reason: Constipation Continue Montelukast Sodium 10 mg PO DAILY Diltiazem HCl [Cartia XT] 240 mg PO QAM Furosemide 40 mg PO DAILY Tiotropium Inhalation [Spiriva] 18 mcg INH DAILY #1 box Albuterol Sulfate [Ventolin HFA] 2 puff INH Q4H PRN PRN Reason: Shortness Of Breath/Wheezing Tamsulosin [Flomax] 0.4 mg PO BID Omeprazole [Prilosec] 20 mg PO BID Ondansetron HCl 4 mg PO Q6H PRN PRN Reason: Nausea/Vomiting fentaNYL [Fentanyl 25 mcg/hr Patch] 1 patch TRANSDERM Q3DAY Oxycodone HCl/Acetaminophen [Percocet 10-325 mg Tablet] 1 each PO Q4H PRN PRN Reason: Pain Aspirin EC Tab 81 mg PO DAILY Simvastatin [Zocor] 80 mg PO BEDTIME Megestrol Acetate [Megace] 10 ml PO DAILY Colchicine 0.6 mg PO BID - Follow Up or Referral - Forms/Instructions Exam - Constitutional Vitals: Period Temp Pulse Resp BP Sys/Solis Pulse Ox Last 24 Hr 97.6 F-98.6 F 71-97 16-20 108-122/69-79 94-100 Discharge Results Procedures and tests throughout hospitalization: Pending Orders 01/21/17 23:00 Occult Blood, Stool Routine 01/27/17 04:00 Basic Metabolic Panel IN AM CBC [Comp Blood Count Auto Diff] IN AM DS: Provider Date of admission: 01/21/17 11:21 Primary care physician: Javi Ann, Attending physician on admission: Olga Olivia MD Consults: 01/21/17 13:37 Consult to Dietitian [CONS] Routine Reason for Dietitian: Other Consult Comment: 25lb weight loss since october Consult to Pastoral Services [CONS] Routine Comment: Pastoral Screen: Request Cleaning Handyman Visit Pastoral Screen Source of Request: Family 01/23/17 14:18 Consult to Case Mgmt/Social Srvs [CONS] Routine Reason for Case Mgmt/Social Srvs: Hospice Referral Discharging clinician: Carlton Rodriguez MD Expected date of discharge: 01/26/17
--- NOTE | 2017-01-29 10:17 | Physician Query Form ---
CLICK EDIT DOCUMENT TO SELECT QUERY ANSWER --> OK --> SIGN Cathleen Machado RN, CCDS Certified Clinical Instructor Psychiatric Aide W) [phone] (f) [phone] [email or web address]: Make your selection(s) from the choices in EACH section by typing an "x" and enter comments in the comment section. Please use your independent medical judgment in providing your response. This request does not imply that any particular answer is desired or expected. CLINICAL INDICATORS: (Providers should not edit this section) The below diagnosis was documented in the record, but is not consistently noted in subsequent documentation. The medical record indicates that the patient was admitted with SOB, "c/o shortness of breath which onset 1 week ago", "confirms dyspnea on exertion", "home 2 liters of home O2" AND the ER impression is COPD exacerbation. [Atrovent ----Duo-neb---Proventil] Diagnosis: COPD exacerbation Please clarify the following: ( x) The above diagnosis was monitored, evaluated, and/or treated and is a confirmed diagnosis ( ) The above diagnosis was ruled out ( ) The above diagnosis is still a likely, suspected, probable diagnosis ( ) Other, please specify: ( ) Clinically unable to determine COMMENTS: Use of terms such as suspected, likely, or probable (associated with a specific diagnosis that is being evaluated, monitored, or treated as if it exists) are acceptable and can be restated in the discharge summary if not ruled out. MTDD
== END 2017-01-26 17:00 | disposition hospice, home (50) | DRG 190 ==
LOC: EDBD → EDUNIT# → N.ED 09:06 → SUATTDRO 11:21 → N.EDINP 11:21 → N.2E 12:59
PROVIDERS: ADMIT Family Medicine; ATTEND Family Medicine